=== PATIENT | male | born 1995 | race Caucasian/White ===

== ENCOUNTER 2016-12-07 10:18 | Emergency (ER) | payer OTHER ==
[~2016-12-07] VITALS: Ht 185.4 cm; Wt 132.4 kg
[~2016-12-07 10:18] MED LIST: AMOXICILLIN500 MG PO; MOTRIN800 MG PO; Motrin,Rufen800 MG PO; NKHM; PREDNISONE10 MG PO; TYLENOL W/CODEI1 TA2 PO
[2016-12-07] MEDS ORDERED: CYCLOBENZAPRINE10 MG PO (11:48)
[2016-12-07] MEDS ORDERED: Motrin,Rufen800 MG PO (11:48)
== END 2016-12-07 11:55 | disposition home or self-care (01) ==
LOC: ED 10:18
DX: S39.012A Strain of muscle, fascia and tendon of lower back, initial encounter (principal); Z91.038 Other insect allergy status; X58.XXXA Exposure to other specified factors, initial encounter; Y93.E9 Activity, other interior property and clothing maintenance; Y92.009 Unspecified place in unspecified non-institutional (private) residence as the place of occurrence of the external cause; Y99.9 Unspecified external cause status

== ENCOUNTER 2017-10-29 05:33 | Emergency (ER) | payer OTHER ==
[~2017-10-29] VITALS: Ht 187.9 cm; Wt 113.4 kg
[~2017-10-29 05:33] MED LIST changes: +CYCLOBENZAPRINE10 MG PO
[2017-10-29] MEDS ORDERED: CYCLOBENZAPRINE10 MG PO (05:46)
[2017-10-29] MEDS ORDERED: NAPROSYN500 MG PO (05:46)
== END 2017-10-29 06:01 | disposition home or self-care (01) ==
LOC: ED 05:33
DX: M54.6 Pain in thoracic spine (principal); Z91.030 Bee allergy status; Z79.899 Other long term (current) drug therapy

== ENCOUNTER 2017-12-10 20:15 | Emergency (ER) | payer OTHER ==
[~2017-12-10] VITALS: Ht 177.8 cm; Wt 95.3 kg
[~2017-12-10 20:15] MED LIST changes: +NAPROSYN500 MG PO
== END 2017-12-10 20:39 | disposition home or self-care (01) ==
LOC: ED 20:15
DX: M79.632 Pain in left forearm (principal); M79.631 Pain in right forearm; Z91.030 Bee allergy status

== ENCOUNTER 2018-01-24 22:33 | Emergency (ER) | payer OTHER ==
[~2018-01-24] VITALS: Ht 185.4 cm; Wt 111.1 kg
[2018-01-24 23:29] LABS: BILIRUBIN NEGATIVE (NEGATIVE); BLOOD NEGATIVE (NEGATIVE); CLARITY CLEAR (CLEAR); COLOR YELLOW (YELLOW); GLUCOSE NEGATIVE (NEGATIVE); KETONE NEGATIVE (NEGATIVE); LEUKO ESTERASE NEGATIVE (NEGATIVE); NITRITE NEGATIVE (NEGATIVE); SPECIFIC GRAVITY >= 1.030 (1.005-1.030); UROBILINOGEN 0.2 E.U./dl (0.2-1.0)
[2018-01-24 23:39] LABS: BACTERIA 1+; EPITHELIAL CELLS 0-2; MUCOUS TRACE; RBC 0-2 rbc/hpf (0-2)
[2018-01-25] MEDS ORDERED: Motrin,Rufen800 MG PO (00:50)
[2018-01-25] MEDS ORDERED: CYCLOBENZAPRINE5 M3 PO (00:50)
== END 2018-01-25 00:47 | disposition home or self-care (01) ==
LOC: ED 22:33
PROVIDERS: Emergency Medicine Emergency Medical Services
DX: S39.012A Strain of muscle, fascia and tendon of lower back, initial encounter (principal); F17.200 Nicotine dependence, unspecified, uncomplicated; Z91.030 Bee allergy status; X58.XXXA Exposure to other specified factors, initial encounter; Y93.89 Activity, other specified; Y92.89 Other specified places as the place of occurrence of the external cause; Y99.9 Unspecified external cause status

== ENCOUNTER 2018-01-28 22:29 | Emergency (ER) | payer OTHER ==
[~2018-01-28] VITALS: Ht 185.4 cm; Wt 111.1 kg
[~2018-01-28 22:29] MED LIST changes: +CYCLOBENZAPRINE5 M3 PO
[2018-01-29] MEDS ORDERED: MEDROL DOSEPAK4 MG PO (00:59)
[2018-01-29] MEDS ORDERED: VICODIN 5-3001 EACH PO (01:08)
== END 2018-01-29 01:21 | disposition home or self-care (01) ==
LOC: ED 22:29
DX: M51.26 Other intervertebral disc displacement, lumbar region (principal); M48.061 Spinal stenosis, lumbar region without neurogenic claudication; Z91.030 Bee allergy status

== ENCOUNTER 2018-02-12 19:45 | Emergency (ER) | payer OTHER ==
[~2018-02-12] VITALS: Ht 185.4 cm; Wt 111.1 kg
[~2018-02-12 19:45] MED LIST changes: +MEDROL DOSEPAK4 MG PO; +VICODIN 5-3001 EACH PO
[2018-02-12] MEDS ORDERED: ROBAXIN500 M1 PO (20:26)
[2018-02-12] MEDS ORDERED: PREDNISONE20 M1 PO (20:26)
== END 2018-02-12 20:40 | disposition home or self-care (01) ==
LOC: ED 19:45
DX: G89.29 Other chronic pain (principal); M54.5 Low back pain; F17.200 Nicotine dependence, unspecified, uncomplicated; Z79.899 Other long term (current) drug therapy; Z91.030 Bee allergy status; X50.0XXA Overexertion from strenuous movement or load, initial encounter; Y93.89 Activity, other specified; Y92.69 Other specified industrial and construction area as the place of occurrence of the external cause; Y99.9 Unspecified external cause status

== ENCOUNTER 2019-04-23 19:15 | Emergency (ER) | payer OTHER ==
[~2019-04-23] VITALS: Wt 124.7 kg
[~2019-04-23 19:15] MED LIST changes: +PREDNISONE20 M1 PO; +ROBAXIN500 M1 PO
[2019-04-23] MEDS ORDERED: Motrin,Rufen800 MG PO (19:42)
[2019-04-23] MEDS ORDERED: CLINDAMYCIN HC300 MG PO (19:42)
== END 2019-04-23 20:13 | disposition home or self-care (01) ==
LOC: ED 19:15
DX: K08.89 Other specified disorders of teeth and supporting structures (principal); Z91.030 Bee allergy status; Z79.899 Other long term (current) drug therapy

== ENCOUNTER 2019-05-14 17:16 | Emergency (ER) | payer OTHER ==
[~2019-05-14] VITALS: Ht 185.4 cm; Wt 124.7 kg
[~2019-05-14 17:16] MED LIST changes: +CLINDAMYCIN HC300 MG PO
[2019-05-14] MEDS ORDERED: NAPROSYN500 MG PO (19:45)
[2019-05-14] MEDS ORDERED: CYCLOBENZAPRINE10 MG PO (19:45)
[2019-05-14] MEDS ORDERED: DELTASONE20 M1 PO (19:45)
== END 2019-05-14 19:56 | disposition home or self-care (01) ==
LOC: ED 17:16
DX: M54.5 Low back pain (principal); Z91.030 Bee allergy status

== ENCOUNTER 2020-06-16 21:27 | Emergency (ER) | payer SELFPAY ==
[~2020-06-16 21:27] MED LIST changes: +DELTASONE20 M1 PO
[2020-06-16] MEDS ORDERED: Motrin,Rufen800 MG PO (22:49)
[2020-06-16] MEDS ORDERED: CYCLOBENZAPRINE10 MG PO (22:49)
== END 2020-06-16 23:36 | disposition home or self-care (01) ==
LOC: ED 21:27
DX: Z79.899 Other long term (current) drug therapy (principal); M54.5 Low back pain; Z91.030 Bee allergy status

== ENCOUNTER → 2022-08-27 | Outpatient (CLI) | payer OTHER | END | disposition home or self-care (01) | LOC: RESCLI 14:41 | PROVIDERS: ATTEND Internal Medicine | DX: Z00.01 Encounter for general adult medical examination with abnormal findings (principal); Z87.891 Personal history of nicotine dependence; Z98.890 Other specified postprocedural states; Z88.8 Allergy status to other drugs, medicaments and biological substances ==

== ENCOUNTER → 2022-08-28 | Outpatient (CLI) | payer OTHER ==
[2022-08-28 07:54] LABS: BASO # 0.1 10*3/uL (0.0-0.1); BASO % 0.7 % (0.0-1.0); EOS # 0.3 10*3/uL (0.0-0.4); EOS % 2.6 % (1.0-4.0); HEMATOCRIT 43.6 % (42.0-52.0); LYMPH # 3.1 10*3/uL (1.3-4.4); LYMPH % 26.8 % (27.0-41.0); MEAN CELL VOLUME 81.8 fl (80.0-94.0); MEAN CORPUSCULAR HGB 27.8 pg (27.0-31.0); MEAN CORPUSCULAR HGB CONC 33.9 g/dl (33.0-37.0); MEAN PLATELET VOLUME 8.1 fl (9.6-12.3); MONO # 0.8 10*3/uL (0.1-1.0); MONO % 6.4 % (3.0-9.0); NEUT # 7.4 10*3/uL (2.3-7.9); NEUT % 63.2 % (47.0-73.0); PLATELET COUNT AUTOMATED 334 10*3/uL (130-400); RED BLOOD COUNT 5.33 10*6/uL (4.50-5.90); RED CELL DISTRI WIDTH 13.1 % (0-14.5); WHITE BLOOD COUNT 11.7 10*3/uL (4.8-10.8)
[2022-08-28 08:15] LABS: ALKALINE PHOSPHATASE 90 U/L (46-116); BUN 11 mg/dl (9-23); CHLORIDE 102 mmol/L (98-107); CHOLESTEROL 172 mg/dL (<200); CREATININE 0.85 mg/dL (0.70-1.30); LDL CHOLESTEROL 90 mg/dL (9-159); POTASSIUM 3.8 mmol/L (3.4-5.1); SGPT/ALT 64 U/L (10-49); SODIUM 138 mmol/L (136-145); TOTAL PROTEIN 7.6 gm/dL (6.0-8.0); TRIGLYCERIDES 254 mg/dl (<150)
== END | disposition home or self-care (01) ==
LOC: LAB 07:35
PROVIDERS: Student in an Organized Health Care Education/Training Program; ATTEND Internal Medicine
DX: Z00.01 Encounter for general adult medical examination with abnormal findings (principal)

== ENCOUNTER → 2022-11-26 | Outpatient (CLI) | payer OTHER | END | disposition home or self-care (01) | LOC: RESCLI 01:26 | PROVIDERS: ATTEND Internal Medicine | DX: I10 Essential (primary) hypertension (principal); E66.9 Obesity, unspecified; M54.30 Sciatica, unspecified side; Z88.8 Allergy status to other drugs, medicaments and biological substances; Z87.891 Personal history of nicotine dependence; Z82.49 Family history of ischemic heart disease and other diseases of the circulatory system ==

== ENCOUNTER → 2022-11-29 | Outpatient (CLI) | payer OTHER ==
[2022-11-29 11:55] LABS: BASO # 0.1 10*3/uL (0.0-0.1); BASO % 0.7 % (0.0-1.0); EOS # 0.3 10*3/uL (0.0-0.4); EOS % 3.1 % (1.0-4.0); HEMATOCRIT 44.5 % (42.0-52.0); LYMPH # 2.1 10*3/uL (1.3-4.4); LYMPH % 25.7 % (27.0-41.0); MEAN CELL VOLUME 83.6 fl (80.0-94.0); MEAN CORPUSCULAR HGB 27.3 pg (27.0-31.0); MEAN CORPUSCULAR HGB CONC 32.6 g/dl (33.0-37.0); MEAN PLATELET VOLUME 8.7 fl (9.6-12.3); MONO # 0.9 10*3/uL (0.1-1.0); MONO % 10.9 % (3.0-9.0); NEUT # 4.9 10*3/uL (2.3-7.9); NEUT % 59.4 % (47.0-73.0); PLATELET COUNT AUTOMATED 322 10*3/uL (130-400); RED BLOOD COUNT 5.32 10*6/uL (4.50-5.90); RED CELL DISTRI WIDTH 12.8 % (0-14.5); WHITE BLOOD COUNT 8.3 10*3/uL (4.8-10.8)
[2022-11-29 11:56] LABS: BILIRUBIN 1+ (Negative); BLOOD Negative (Negative); CLARITY Clear (Clear); COLOR Orange (Yellow); GLUCOSE Negative (Negative); KETONE Trace (Negative); LEUKO ESTERASE Trace (Negative); NITRITE Negative (Negative); PH 5.5 (4.5-8.0); SPECIFIC GRAVITY >= 1.030 (1.001-1.030)
[2022-11-29 12:27] LABS: ALKALINE PHOSPHATASE 85 U/L (46-116); BUN 13 mg/dl (9-23); CHLORIDE 106 mmol/L (98-107); CHOLESTEROL 131 mg/dL (<200); LDL CHOLESTEROL 58 mg/dL (9-159); POTASSIUM 3.8 mmol/L (3.4-5.1); SGPT/ALT 35 U/L (10-49); TOTAL PROTEIN 7.6 gm/dL (6.0-8.0); TRIGLYCERIDES 208 mg/dl (<150)
[2022-11-29 13:07] LABS: BACTERIA 3+; MUCOUS 3+
== END | disposition home or self-care (01) ==
LOC: LAB 11:13
PROVIDERS: Student in an Organized Health Care Education/Training Program; ATTEND Internal Medicine
DX: J98.09 Other diseases of bronchus, not elsewhere classified (principal); I10 Essential (primary) hypertension

== ENCOUNTER → 2025-02-18 | Outpatient (CLI) | payer OTHER | END | disposition home or self-care (01) | LOC: MRI 08:56 | PROVIDERS: ATTEND Chiropractor Orthopedic | DX: M51.26 Other intervertebral disc displacement, lumbar region (principal); M48.061 Spinal stenosis, lumbar region without neurogenic claudication; M48.07 Spinal stenosis, lumbosacral region; M25.78 Osteophyte, vertebrae ==